=== PATIENT | male | born 1970 | race Caucasian/White ===

== ENCOUNTER 2018-04-26 13:36 | Emergency (ER) | payer SELFPAY ==
[~2018-04-26] VITALS: Ht 172.7 cm; Wt 88.5 kg
[2018-04-26 13:46] VITALS: BP 158/89
--- NOTE | 2018-04-26 13:51 | NUR ---
PT TRIAGED AND SENT TO ED MICHAELBYKAJAL AWARE OF PT STATUS
--- NOTE | 2018-04-26 14:34 | NUR ---
PT AMBULATED TO ER BED 05
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
[2018-04-26] MEDS ORDERED: cefTRIAXone 250 MG in LIDOCAINE MPF 1% - 5 mL VIAL 0.9 ML IM ONE (15:10)
[2018-04-26 15:51] VITALS: BP 136/68
--- NOTE | 2018-04-26 15:51 | NUR ---
Patient discharged with v/s stable. Written and verbal after care instructions given and explained. Patient alert, oriented and verbalized understanding of instructions. Ambulatory with steady gait. All questions addressed prior to discharge. ID band removed. Patient advised to follow up with PMD. Rx of DOXYCYCLINE AND NAPROSYN given. Patient educated on indication of medication including possible reaction and side effects. Opportunity to ask questions provided and answered.
[2018-04-30 19:58] LABS: CHLAMYDIA TRACHOMATIS AMP DNA POSITIVE (NEGATIVE)
== END 2018-04-26 15:51 | disposition home or self-care (01) ==
LOC: MED 13:36
DX: N45.1 Epididymitis (principal)
CPT/HCPCS: 36415; 76870; 87491; 96372; 99285; J0696; J2001; Q0092

== ENCOUNTER 2020-04-20 22:01 | Emergency (ER) | payer SELFPAY ==
[~2020-04-20] VITALS: Ht 172.7 cm; Wt 77.1 kg
[2020-04-20 22:06] VITALS: BP 141/92
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
[2020-04-20 22:33] VITALS: BP 141/92
--- NOTE | 2020-04-20 22:33 | NUR ---
Patient discharged with v/s stable. Written and verbal after care instructions given and explained. Patient alert, oriented and verbalized understanding of instructions. Ambulatory with steady gait. All questions addressed prior to discharge. ID band removed. Patient advised to follow up with PMD. Rx of KEFLEX/MOTRIN/BACTRIM given. Patient educated on indication of medication including possible reaction and side effects. Opportunity to ask questions provided and answered.
== END 2020-04-20 22:33 | disposition home or self-care (01) ==
LOC: MED 22:01
DX: L03.114 Cellulitis of left upper limb (principal); F17.210 Nicotine dependence, cigarettes, uncomplicated
CPT/HCPCS: 99283